=== PATIENT | female | born 1980 | race Caucasian/White ===

== ENCOUNTER 2016-05-11 16:42 | Emergency (ER) | payer OTHER ==
[~2016-05-11] VITALS: Ht 177.8 cm; Wt 90.7 kg
--- NOTE | 2016-05-11 16:55 | NUR ---
PT AMBULATED TO BED 2
[2016-05-11 17:01] VITALS: BP 123/79; PULSE 99; RESP 15; TEMP 98.1; O2SAT 99
--- NOTE | 2016-05-11 17:08 | NUR ---
DR. WINSLOW AT BEDSIDE
--- NOTE | 2016-05-11 17:15 | NUR ---
PT C/O BACK.PT SEEN IN [facility] FOR SAME COMPLAINT TODAY.
[2016-05-11 17:38] VITALS: BP 123/79; PULSE 99; RESP 15; TEMP 98.1; O2SAT 99
--- NOTE | 2016-05-11 17:38 | NUR ---
AT BEDSIDE FOR ACI.PT LEFT W/O RX.
== END 2016-05-11 17:38 | disposition home or self-care (01) ==
LOC: SED 16:42
DX: G89.29 Other chronic pain (principal); R03.0 Elevated blood-pressure reading, without diagnosis of hypertension; M54.9 Dorsalgia, unspecified; R10.9 Unspecified abdominal pain
CPT/HCPCS: 99281

== ENCOUNTER 2017-08-31 19:53 | Emergency (ER) | payer OTHER ==
[~2017-08-31] VITALS: Ht 175.3 cm; Wt 77.1 kg
[2017-08-31 20:05] VITALS: BP_SYST 127
--- NOTE | 2017-08-31 20:05 | NUR ---
Placed in room 04 . Placed on nuclear monitoring technician, blood pressure machine and pulse oximeter. To gown for exam. Side rails up. Report given to KELLY Jade.
--- NOTE | 2017-08-31 20:20 | NUR ---
37year old female presented to ED with complaints of 8/10 VAGINAL/PELVIC PAIN X COUPLE WEEKS; pt reports having regular unprotected intercourse; awaiting for MD assess/eval
[2017-08-31 20:30] LABS: BILIRUBIN,URINE NEGATIVE (NEGATIVE); BLOOD, URINE 3+ (NEGATIVE); CLARITY/URINE SL HAZY (CLEAR); COLOR,URINE YELLOW (YELLOW); GLUCOSE,URINE NEGATIVE (NEGATIVE); KETONES,URINE NEGATIVE (NEGATIVE); LEUKOCYTE ESTERASE ,URINE 1+ (NEGATIVE); NITRITE, URINE NEGATIVE (NEGATIVE); PH,URINE 5.5 (5.0-8.0); PROTEIN URINE NEGATIVE (NEGATIVE); UROBILINOGEN,URINE 0.2 (0.2-1.0)
[2017-08-31] MEDS ORDERED: KETOROLAC TROMETHAMINE 60 MG/2 ML VIAL IM ONE (20:30)
--- NOTE | 2017-08-31 20:35 | NUR ---
Dr. Ley at bedside performing vaginal exam with RN at bedside; pt aileen procedure
[2017-08-31 20:42] LABS: BACTERIA,URINE FEW /HPF (None Seen); RBC,URINE 20-50 /HPF (0-3)
--- NOTE | 2017-08-31 20:43 | NUR ---
9/10 vaginal pain; Toradol 60mg IM given as ordered; will continue to monitor and reassess
[2017-08-31] MEDS ORDERED: cefTRIAXone 250 MG VIAL IM ONE (20:45)
[2017-08-31] MEDS ORDERED: AZITHROMYCIN 250 MG TABLET PO ONE (20:45)
--- NOTE | 2017-08-31 21:09 | NUR ---
5/10 vaginal pain; improved from earlier; no further pain interventions required at this time; Rocephin and Azithromycin given as ordered; pt aileen
--- NOTE | 2017-08-31 21:10 | NUR ---
US being performed at bedside
[2017-08-31 22:30] VITALS: BP_SYST 126
--- NOTE | 2017-08-31 22:30 | NUR ---
Patient given written and verbal discharge instructions and verbalizes understanding. ER MD discussed with patient the results and treatment provided. Patient in stable condition. ID arm band removed. IV catheter removed intact and dressing applied, no active bleeding. Rx of Bactrim, Motrin, and Tramadol given. Patient educated on pain management and to follow up with PMD within 2-3days. Pain Scale 2/10; tolerable and requires no further interventions; pt and MD agreeable to discharge home. Opportunity for questions provided and answered. Medication side effect fact sheet provided.
[2017-09-03 15:13] LABS: CHLAMYDIA TRACHOMATIS NAA Negative (Negative)
== END 2017-08-31 22:30 | disposition home or self-care (01) ==
LOC: SED 19:53
DX: N73.9 Female pelvic inflammatory disease, unspecified (principal); R03.0 Elevated blood-pressure reading, without diagnosis of hypertension; F41.9 Anxiety disorder, unspecified
CPT/HCPCS: 74018; 76830; 76857; 81000; 87086; 87491; 87591; 96372; 99285; J0696; J1885; Q0144